=== PATIENT | male | born 1995 | race Caucasian/White ===

== ENCOUNTER 2021-12-10 21:14 | Emergency (ER) | payer MEDICARE, MEDICAID, SELFPAY ==
[2021-12-10 21:31] VITALS: BP 151/90; PULSE 84; RESP 18; TEMP 37.1; O2SAT 99; BMI 41.1
[2021-12-10 23:16] LABS: COVID-19 Test Positive (Negative)
--- NOTE | 2021-12-10 23:54 | ED.GENADULT ---
HPI - General Adult General Chief complaint: General Medical Stated complaint: possible covid? Time Seen by Provider: 12/10/21 23:50 Source: patient Mode of arrival: ambulatory Limitations: no limitations History of Present Illness HPI narrative: 26-year-old male who is healthy with no known medical history who presents seeking a COVID test. Patient tells me his mom in on are at home and are COVID positive. He is asymptomatic. He is not vaccinated. He took a home test that was positive but he wants to check a test here Related Data Allergies Allergy/AdvReac Type Severity Reaction Status Date / Time No Known Allergies Allergy Verified 12/10/21 21:31 Review of Systems Review of Systems: Yes all other systems are reviewed and are negative Constitutional: Constitutional: Reports no additional constitutional complaints, Denies body ache(s), Denies chills, Denies fever(s), Denies headache(s) and Denies weakness Eyes: Eyes: Reports no additional eye complaints and Denies change in vision ENT: Reports system reviewed and no additional complaints, except as documented, Denies dizziness, Denies headache(s), Denies nasal congestion, Denies nasal discharge and Denies neck pain Cardiovascular: Cardiovascular: Reports no additional cardiovascular complaints, Denies chest pain, Denies leg edema and Denies dyspnea Respiratory: Respiratory: Reports no additional respiratory complaints, Denies cough and Denies dyspnea Gastrointestinal: Gastrointestinal: Reports no additional gastrointestinal complaints, Denies abdominal pain, Denies diarrhea, Denies nausea and Denies vomiting Genitourinary: Genitourinary: Denies urinary incontinence Musculoskeletal: Musculoskeletal: Reports no additional musculoskeletal complaints, Denies back pain, Denies arthralgias, Denies joint swelling, Denies neck pain, Denies numbness and Denies tingling Integumentary/Breasts: Skin/Breast: Reports system reviewed and no additional complaints, except as docu and Denies rash Neurologic: Reports system reviewed and no additional complaints, except as documented, Denies dizziness, Denies headache(s), Denies numbness, Denies tingling and Denies weakness PMFSH Past Medical History Attestation statement: The following information was validated with the patient. Source: old records reviewed and nursing notes reviewed Social History Social History Advance Directives: No Advance Directives Information Provided: No Physical Exam ED Vital Signs: Vital Signs - 24 hr 12/10/21 21:31 Temperature 98.7 F Pulse Rate 84 Respiratory Rate 18 Blood Pressure 151/90 H Pulse Oximetry 99 Oxygen Delivery Method Room Air BMI result Body Mass Index 41.1 Const General: cooperative, healthy appearing, comfortable and no acute distress Orientation/consciousness: patient oriented x3 Limitations: no limitations HENMT Head: Yes normal to inspection Ears: hearing grossly normal bilaterally and TM's normal bilaterally Throat: Yes posterior oropharynx normal, Yes tonsils normal and Yes uvula midline Eyes General: appearance normal, both eyes and all related structures Pupils: Equal, round and reactive pupils present Neck Neck: Yes normal visual inspection, Yes full ROM and Yes no lymphadenopathy Chest Chest palpation & inspection: normal inspection of the chest Resp Effort & Inspection: normal respiratory effort Auscultation: clear to auscultation bilaterally Cardio Rate: regular rate Rhythm: regular rhythm Peripheral pulses: Peripheral pulses 2+ throughout GI Inspection: Yes normal to inspection Back/Spine/Pelvis Thoracic/Lumbar Spine: thoracic and lumbar spine normal to inspection Skin General skin exam: no rashes or lesions noted Neuro General: patient oriented x3 and moves all extremities Cranial nerves: Yes Equal, round and reactive pupils present Cognition (Neuro): normal cognition Gait exam (Neuro): Normal gait present Course Course Course Narrative: COVID screen is positive. Patient is asymptomatic. He is healthy. He has no comorbidities. No hypoxia, tachypnea. Lungs are clear. Reviewed quarantine at home. Reviewed worrisome signs and symptoms when to return to the emergency department. Comfortable discharge home. Medical Decision Making [facility] Narrative Medical decision making narrative: 26-year-old male who is asymptomatic with COVID exposure and home COVID test seeking COVID testing. COVID test was ordered from triage and sent Medical Records Medical records reviewed: Yes I reviewed the patient's medical records. Lab Data Lab results reviewed: Yes I reviewed the patient's lab results. Labs: Lab Results 12/10/21 Range/Units 22:46 COVID-19 ([facility]) Positive A (Negative) COVID-19 Clin Com See Note Discharge Plan Discharge Clinical Impression: COVID-19 Patient Disposition: Home, Self-Care Instructions: Covid-19 Viral Syndrome and Novel Coronavirus (ED) Hey/Ath Additional Instructions: Quarantine for 5 days Drink plenty of fluids Motrin Tylenol as needed Referrals: Physician,None [Primary Care Provider] -
== END 2021-12-11 00:37 | disposition home or self-care (01) ==
LOC: HO.ED 12-11 00:07
PROVIDERS: Emergency Provider Internal Medicine
DX: U07.1 COVID-19 (principal)
CPT/HCPCS: 87635; 99282; 99283